=== PATIENT | female | born 1985 | race Caucasian/White ===

== ENCOUNTER 2020-06-22 05:57 | Emergency (ER) | payer BC ==
[~2020-06-22] VITALS: Ht 165.1 cm; Wt 90.9 kg
[2020-06-22 06:02] VITALS: BP 115/83; Ht 165.1 cm; Wt 90.9 kg
== END 2020-06-22 07:08 | disposition home or self-care (01) ==
LOC: D.ER 05:57
DX: S81.012A Laceration without foreign body, left knee, initial encounter (principal); W25.XXXA Contact with sharp glass, initial encounter; Y93.9 Activity, unspecified; Y92.9 Unspecified place or not applicable

== ENCOUNTER 2020-07-10 06:20 | Emergency (ER) | payer BC ==
[~2020-07-10] VITALS: Ht 165.1 cm; Wt 90.9 kg
[2020-07-10 06:25] VITALS: Ht 165.1 cm; Wt 90.9 kg
[2020-07-10 07:00] VITALS: BP 124/88
== END 2020-07-10 07:00 | disposition home or self-care (01) ==
LOC: D.ER 06:20
DX: R51.9 Headache, unspecified (principal); F07.81 Postconcussional syndrome